=== PATIENT | female | born 1960 | race Caucasian/White ===

== ENCOUNTER → 2019-01-22 | Day surgery (SDC) | payer BC ==
--- NOTE | 2019-01-22 09:39 | NM ---
NM Lymphoscintigraphy HISTORY: Malignant neoplasm of upper outer quadrant of the left female breast. RADIOPHARMACEUTICAL: 419 uCi of technetium 99m filtered sulfur colloid. Left periareolar injection i n divided doses. FINDINGS: Increased focal uptake is seen in the left axilla IMPRESSION: [place] lymph node(s) in the left axilla.
== END ==
LOC: NM 08:08
PROVIDERS: ATTEND Surgery
DX: C50.412 Malignant neoplasm of upper-outer quadrant of left female breast (principal)
CPT/HCPCS: 78195; A9541

== ENCOUNTER 2019-09-02 13:26 | Outpatient (CLI) | payer BC ==
--- NOTE | 2019-09-02 14:55 | RAD ---
LEFT KNEE 3 VIEWS: HISTORY: Knee pain. FINDINGS: Joint spaces are preserved. No fracture. No significant degenerative change. No osseous abnormalit y. No significant effusion. IMPRESSION: Unremarkable left knee. POS: AH
== END 2019-09-02 13:27 | disposition home or self-care (01) ==
LOC: BICRAD 13:26
PROVIDERS: ATTEND Family Medicine
DX: M25.562 Pain in left knee (principal)

== ENCOUNTER 2021-01-04 13:52 | Outpatient (CLI) | payer BC | END 2021-01-04 13:53 | disposition home or self-care (01) | LOC: BICMAMMO 13:52 | PROVIDERS: ATTEND Student in an Organized Health Care Education/Training Program | DX: Z08 Encounter for follow-up examination after completed treatment for malignant neoplasm (principal); Z85.3 Personal history of malignant neoplasm of breast | CPT/HCPCS: G0279 ==

== ENCOUNTER 2021-02-08 14:21 | Outpatient (CLI) | payer BC | END 2021-02-08 14:22 | disposition home or self-care (01) | LOC: BICMAMMO 14:21 | PROVIDERS: ATTEND Internal Medicine Hematology & Oncology | DX: M81.8 Other osteoporosis without current pathological fracture (principal); T38.6X5A Adverse effect of antigonadotrophins, antiestrogens, antiandrogens, not elsewhere classified, initial encounter; C50.412 Malignant neoplasm of upper-outer quadrant of left female breast; M85.89 Other specified disorders of bone density and structure, multiple sites | CPT/HCPCS: 77080 ==